=== PATIENT | female | born 1980 ===

== ENCOUNTER 2020-07-20 00:27 | Emergency (ER) | payer SELFPAY ==
[~2020-07-20] VITALS: Ht 157.5 cm; Wt 66.5 kg
[2020-07-20 00:32] VITALS: BP 128/94
--- NOTE | 2020-07-20 02:42 | NUR ---
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
--- NOTE | 2020-07-20 03:46 | NUR ---
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
--- NOTE | 2020-07-20 03:55 | NUR ---
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
== END 2020-07-20 03:57 | disposition other institution (70) ==
LOC: ED 00:57
DX: M25.561 Pain in right knee (principal); M25.531 Pain in right wrist; F15.10 Other stimulant abuse, uncomplicated; W01.0XXA Fall on same level from slipping, tripping and stumbling without subsequent striking against object, initial encounter; Y93.89 Activity, other specified; Y92.89 Other specified places as the place of occurrence of the external cause; Y99.8 Other external cause status
CPT/HCPCS: 99281